=== PATIENT | male | born 1995 | race Caucasian/White ===

== ENCOUNTER 2018-11-14 10:00 | Emergency (ER) | payer BC ==
[2018-11-14 10:30] VITALS: BP 133/81
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
[2018-11-14] MEDS ORDERED: Ketorolac 60 MG/2 ML SDV IM ONE (10:59)
== END 2018-11-14 11:40 | disposition home or self-care (01) ==
LOC: KA.ED 10:00
DX: S82.842E Displaced bimalleolar fracture of left lower leg, subsequent encounter for open fracture type I or II with routine healing (principal); Z79.899 Other long term (current) drug therapy; Z88.1 Allergy status to other antibiotic agents; V86.96XA Unspecified occupant of dirt bike or motor/cross bike injured in nontraffic accident, initial encounter
CPT/HCPCS: 96372; 99283; J1885